=== PATIENT | male | born 1950 | race Caucasian/White ===

== ENCOUNTER → 2018-08-11 | Outpatient (CLI) | payer OTHER | LOC: BHFA 13:30 | PROVIDERS: ATTEND Internal Medicine Cardiovascular Disease | DX: I25.10 Atherosclerotic heart disease of native coronary artery without angina pectoris (principal); R06.00 Dyspnea, unspecified | CPT/HCPCS: 78452; 93017; A9500 ==

== ENCOUNTER 2018-08-19 07:52 | Day surgery (SDC) | payer OTHER, MEDICARE ==
[2018-08-19] MEDS ORDERED: FAMOTIDINE 20 MG TAB PO ONE (07:56)
[2018-08-19] MEDS ORDERED: DIAZEPAM 5 MG TAB PO ONE (07:56)
[2018-08-19] MEDS ORDERED: NS 1,000 ML IV ONE (07:56)
[2018-08-19] MEDS ORDERED: diphenhydrAMINE 25 MG CAP PO ONE ×2 (07:56→08:23)
[2018-08-19] MEDS ORDERED: ASPIRIN EC 325 MG TAB PO ONE ×2 (07:56→08:23)
[2018-08-19] MEDS ORDERED: LIDOCAINE 1% 300 MG/30 ML SDV ONE ×2 (07:59→13:19)
[2018-08-19] MEDS ORDERED: fentaNYL 100 MCG/2 ML INJ ONE ×2 (08:00→13:19)
[2018-08-19] MEDS ORDERED: MIDAZOLAM 2 MG/2 ML VIAL ONE ×2 (08:00→13:19)
[2018-08-19] MEDS ORDERED: IOHEXOL 350mgI/ML (OMNIPAQUE) 150 ML BTL IV ONE ×2 (08:00→13:20)
[2018-08-19] MEDS ORDERED: FAMOTIDINE 20 MG TAB ONE (08:23)
[2018-08-19] MEDS ORDERED: DIAZEPAM 5 MG TAB ONE (08:24)
--- NOTE | 2018-08-19 08:28 | PDHPUP ---
History & Physical Update H&P update statement: This history and physical update is based on an assessment of the patient which was completed after admission or registration (within 24 hours), but prior to the surgery/procedure. H&P update: H&P reviewed & patient examined, no change in patient's condition since H&P completed
--- NOTE | 2018-08-19 08:28 | PDPROPOC ---
Sedation Plan of Care Sedation Plan of Care: mental status noted, patient educated of risks, benefits , alternatives, patient can tolerate sedation ASA Classification: ASA 2 Planned drugs: fentanyl, midazolam Mallampati Score: Class 2 Mallampati Reference Image: Patient passed 3-3-2 rule?: Yes
[2018-08-19 08:37] LABS: PLATELET COUNT 262 10^3/uL (150-400)
[2018-08-19] MEDS ORDERED: CLOPIDOGREL BISULFATE 75 MG TAB PO ONE (08:45)
[2018-08-19 08:46] LABS: INR 0.99 (0.83-1.16); PROTIME(PATIENT) 13.3 SEC (12.0-15.0)
--- NOTE | 2018-08-19 11:47 | CPEKG ---
Test Reason : OPEN Blood Pressure : / mmHG Vent. Rate : 076 BPM Atrial Rate : 076 BPM P-R Int : 134 ms QRS Dur : 085 ms QT Int : 367 ms P-R-T Axes : 048 072 031 degrees QTc Int : 413 ms Sinus rhythm Confirmed by Rodrigo Zuniga ([id number]) on 08/19/2018 11:46:51 AM Referred By: Romeo Puga Confirmed By:Rodrigo Zuniga
[2018-08-19] MEDS ORDERED: NITROGLYCERIN 0.4 MG BTL SL PRN (14:34)
[2018-08-19] MEDS ORDERED: ONDANSETRON 4 MG/2 ML VIAL IVP PRN (14:34)
[2018-08-19] MEDS ORDERED: ATROPINE SULFATE 1 MG/10 ML SYR IVP PRN (14:34)
[2018-08-19] MEDS ORDERED: OXYCODONE/APAP 5/325 TAB PO PRN (14:34)
[2018-08-19] MEDS ORDERED: HYDROCODONE/APAP 5/325 TAB PO PRN (14:34)
--- NOTE | 2018-08-19 15:05 | CPIP ---
[f rep st] INVASIVE CARDIAC PROCEDURE DATE OF PROCEDURE: 08/19/2018 INDICATION FOR PROCEDURE: Chest pain, positive stress test. PROCEDURE: 1. Nonselective right groin sheathogram. 2. Bilateral coronary angiography. 3. Left heart catheterization. 4. Left ventriculogram. 5. Right groin closure with 6-Barbadian Angio-Seal. Briefly, this is a 68-year-old with recent chest pain with exertion. The patient also had a stress t est, which was positive for ischemia. The patient was consented for left heart catheterization for t shama. DESCRIPTION OF PROCEDURE: After informed consent, patient was brought to [facility] here the right groin was prepped and draped in sterile fashion. Using lidocaine, a short 6-Barbadian sh eath in the right femoral artery, verified angiographically. Through the 6-Barbadian sheath a JL4 fani ter was advanced to left coronary artery. Imaging of left coronary artery revealed normal left main, 20-30 percent ostial left circumflex disease with normal distal left circumflex terminating to 2 lar ge marginal branches distally with a small marginal branch in the midportion and an AV groove circ wh ich was healthy and free of disease. The LAD gave off a high diagonal artery proximally which was he althy and free of disease. The LAD itself had mild plaque, 20% plaque disease throughout its course. After images were obtained, the JL4 catheter was removed and a JR4 guide was advanced to the right coronary artery. Imaging of the right coronary artery revealed small, but patent ostial and proximal right coronary artery. Aneurysmal mid RCA and distal RCA. RPDA and were small, but appe ared to be healthy and free of disease. Of note, there was some ostial spasm of the RCA with slight damping; however, this was most likely from spasm as opposed to any atherosclerotic disease. The JR4 catheter was removed. The pigtail catheter was advanced to left ventricle. LVEDP is 14 mmHg. Left ventriculogram showed EF of 65% with no wall motion abnormalities. No pullback gradient between the LV and aorta. Pigtail catheter was removed over the guidewire. Right groin was closed. . The patient tolerated the procedure well with no complications. IMPRESSION: 1. Mild noncritical coronary artery disease. 2. Normal ejection fraction. PLAN: The patient's chest pain is not coming from an atherosclerotic etiology. If the patient does have continued discomfort with exertion, potentially coronary spasm could be the etiology. The patie nt will follow up in the office in 1 week's time for further discussion. /[id number]/MODL
== END 2018-08-19 17:57 | disposition home or self-care (01) ==
LOC: FCATH 07:52
PROVIDERS: ATTEND Internal Medicine Cardiovascular Disease
DX: R07.9 Chest pain, unspecified (principal); I25.10 Atherosclerotic heart disease of native coronary artery without angina pectoris; E78.5 Hyperlipidemia, unspecified; Z87.891 Personal history of nicotine dependence; Z78.9 Other specified health status; Z82.49 Family history of ischemic heart disease and other diseases of the circulatory system
CPT/HCPCS: C1760; J1644; J2250; J3010; Q9967

== ENCOUNTER 2018-08-31 12:30 | Emergency (ER) | payer OTHER, MEDICARE ==
--- NOTE | 2018-08-31 13:33 | EDPHY ---
H & P Stated Complaint: streaks of blood in stool this morning/had heart cath 10 days ago Time Seen by Provider: 08/31/18 13:32 - Personal History Current Tetanus/Diphtheria Vaccine: Yes - Medical/Surgical History Hx Asthma: No Hx Chronic Respiratory Disease: No Hx Diabetes: No Hx Cardiac Disease: Yes Hx Renal Disease: No Hx Cirrhosis: No Hx Alcoholism: No Hx HIV/AIDS: No Hx Splenectomy or Spleen Trauma: No Other PMH: cardiac cath - Social History Smoking Status: Former smoker Constitutional: Initial Vital Signs Temperature (C) 36.7 C 08/31/18 12:38 Heart Rate 67 08/31/18 12:38 Respiratory Rate 18 08/31/18 12:38 Blood Pressure 121/79 H 08/31/18 12:38 O2 Sat (%) 96 08/31/18 12:38 O2 Delivery Mode Room Air Allergies/Adverse Reactions: No Known Allergies Allergy (Verified 08/31/18 12:38) Home Medications: Medication Instructions Recorded Aspirin [Aspirin 81mg (*)] 81 mg PO DAILY 08/18/18 Medical Decision Making ED Course/Re-evaluation: CHIEF COMPLAINT: Blood in stool HISTORY OF PRESENT ILLNESS: The patient is a 67 y/o male with a history of a heart catheterization (on 08/21) complaining of bright red blood in his stool. Ten days ago he had a heart catheterization, but did not have any stents placed. He had no complaints after the procedure. This morning he noticed bright red streaks of blood on his stool. ; his stool was otherwise normal and he denies any pain. He called his cardiac nurse who advised that the patient present to the emergency department. He denies history of similar symptoms or recent change in medications. He denies taking anticoagulants but does take Aspirin. No fever, headache, body aches, lightheadedness, chest pain, heart palpitations, shortness of breath, cough, abdominal pain, urinary complaints, numbness, paresthesias. REVIEW OF SYSTEMS: A comprehensive 10 system review of systems is otherwise negative aside from elements mentioned in the history of present illness and medical decision making. PHYSICAL EXAM: HR, BP, O2 Sat, RR. Temp noted General Appearance: Alert, well hydrated, appropriate, and non-toxic appearing. Head: Atraumatic without scalp tenderness or obvious injury Eyes: Pupils equal, round, reactive to light and accommodation, EOMI, no trauma , no injection. Ears: Clear bilaterally, no perforation, normal landmarks Nose: Atraumatic, no rhinorrhea, clear. Throat: There is no erythema or exudates, no lesions, normal tonsils, mucus membranes moist. Neck: Supple, 2+ carotid upstroke, nontender, no lymphadenopathy. Respiratory: No retractions, no distress, no wheezes, and no accessory muscle use. Lungs are clear to auscultation bilaterally. Cardiovascular: Regular rate and rhythm, no murmurs, rubs, or gallops. Bilateral carotid, radial, dorsalis pedis, and posterior tibial pulses intact. Good capillary refill all extremities. Gastrointestinal: Abdomen is soft, nontender, non-distended, no masses, no rebound, no guarding, no peritoneal signs. Rectal: Gross blood present on the glove. Musculoskeletal: Normal active ROM of all extremities, atraumatic. Neurological: Alert, appropriate, and interactive. The patient has normal DTRs and non-focal cranial nerves, motor, sensory, and cerebellar exam. Skin: No rashes, good turgor, no nodules on palpation. Past medical history: Denies Past surgical history: Heart catheterization Family history: Denies Social history: at bedside, lives in [place], employed. DIAGNOSTICS/PROCEDURES/CRITICAL CARE TIME: Not indicated. DIFFERENTIAL DIAGNOSIS: The differential diagnosis for the patient's rectal bleeding included but was not limited to hemorrhoids, ulcer disease, gastritis, Karen-Smith tear. MEDICAL DECISION MAKING: The patient is a 67 y/o male with a history of a heart catheterization (on 08/21) presenting with bright red blood in his stool. On his rectal exam there is gross blood present consistent with hemorrhoids. I have advised the patient to use over the counter medications and follow up with his PCP. Return precautions provided; patient is comfortable with this plan. Departure - Departure Disposition: Home, Routine, Self-Care Clinical Impression: Acute hemorrhoid Condition: Good Instructions: Hemorrhoids (ED) Additional Instructions: 1. Apply preparation H to the hemorrhoid. You can buy this over the counter. 2. Follow up with your PCP in the next 72 hours. 3. Return to the Emergency Department for fever, chest pain, shortness of breath, abdominal pain, increasing pain or other worsening of condition. Referrals: Rajat Yusuf MD [Primary Care Provider] - As per Instructions Report Scribed for: Varinder Felipe Report Scribed by: Elaine Wheeler Date of Report: 08/31/18 Time of Report: 13:39
[2018-08-31 14:06] VITALS: BP 122/74
== END 2018-08-31 14:09 | disposition home or self-care (01) ==
DX: K64.9 Unspecified hemorrhoids (principal)

== ENCOUNTER → 2018-09-03 | Outpatient (CLI) | payer OTHER, MEDICARE | LOC: FIMAGING 09:37 ==